=== PATIENT | male | born 1970 | race Caucasian/White ===

== ENCOUNTER 2016-10-06 12:17 | Emergency (ER) | payer OTHER ==
[2016-10-06 12:17] VITALS: BMI 37.3
[2016-10-06 12:50] VITALS: BP 117/75; PULSE 67; RESP 18; TEMP 98.5; O2SAT 99
--- NOTE | 2016-10-06 13:17 | C.PDOC ---
History Of Present Illness <Lula Vega - Last Filed: 10/06/16 13:14> <Ruddy Chaudhry DO - Last Filed: 10/06/16 14:43> 46 year old male patient presents to the ED c/o right shoulder and right elbow pain increased for the past 2 days. Patient notes that the pain is intermittent and he had the same shoulder pain for the last 2 years. Patient denies new trauma, change in pain, or injury to site. Patient denies fever, chills, chest pain, neck pain, headache, nausea, vomiting, or any other complaints. (Ruddy Chaudhry DO) <Lula Vega - Last Filed: 10/06/16 13:14> History Per: Patient History/Exam Limitations: no limitations Onset/Duration Of Symptoms: Days Current Symptoms Are (Timing): Still Present Quality: Other (Intermittent ) Severity: Mild <Ruddy Chaudhry DO - Last Filed: 10/06/16 14:43> Time Seen by Provider: 10/06/16 12:30 Chief Complaint (Nursing): Upper Extremity Problem/Injury Past Medical History - Medical History PMH: Arthritis, Fibromyalgia, HTN, Osteoporosis, Rheumatoid Arthritis Denies: Diabetes (pt is unsure but believes to be borderline diabetic) Family History: States: Unknown Family Hx - Social History Hx Tobacco Use: No Hx Alcohol Use: No Hx Substance Use: No - Immunization History Hx Tetanus Toxoid Vaccination: Yes Hx Influenza Vaccination: Yes Hx Pneumococcal Vaccination: Yes <Lula Vega - Last Filed: 10/06/16 13:14> Reviewed: Historical Data, Nursing Documentation, Vital Signs Family History: States: Unknown Family Hx <Ruddy Chaudhry DO - Last Filed: 10/06/16 14:43> Vital Signs: Last Vital Signs Temp 98.5 F 10/06/16 12:22 Pulse 67 10/06/16 12:22 Resp 18 10/06/16 12:22 BP 117/75 10/06/16 12:22 Pulse Ox 99 10/06/16 13:17 Review Of Systems Except As Marked, All Systems Reviewed And Found Negative. Constitutional: Negative for: Fever, Chills, Other (Trauma) Cardiovascular: Negative for: Chest Pain Gastrointestinal: Negative for: Nausea, Vomiting Musculoskeletal: Positive for: Shoulder Pain (Right). Negative for: Neck Pain Neurological: Negative for: Headache <Ruddy Chaudhry DO Last Filed: 10/06/16 14:43> Physical Exam - Physical Exam Appears: Non-toxic, No Acute Distress Skin: Warm, Dry Head: Atraumatic, Normacephalic Eye(s): bilateral: Normal Inspection Cardiovascular: Rhythm Regular, No Murmur Respiratory: Normal Breath Sounds, No Rales, No Rhonchi, No Wheezing Gastrointestinal/Abdominal: Soft, No Tenderness Extremity: Tenderness (Diffuse right shoulder tenderness) Neurological/Psych: Oriented x3, Normal Speech, Normal Cognition <Ruddy Chaudhry DO Last Filed: 10/06/16 14:43> ED Course And Treatment O2 Sat by Pulse Oximetry: 99 <YessytresadiamondLula - Last Filed: 10/06/16 13:14> O2 Sat by Pulse Oximetry: 99 (Room air) Pulse Ox Interpretation: Normal Progress Note: Plans: Toradol, X-Ray of right shoulder <Ruddy Chaudhry DO Last Filed: 10/06/16 14:43> Disposition - Disposition Disposition Time: 13:15 <YessytresadiamondLula - Last Filed: 10/06/16 13:14> <Ruddy Chaudhry DO Last Filed: 10/06/16 14:43> - Disposition Disposition: HOME/ ROUTINE Condition: STABLE Additional Instructions: Follow up with primary medical doctor in 1-3 days without fail for further evaluation. Take medications as prescribed. Return to the emergency department at any time if symptoms persist or worsen. Prescriptions: Ketorolac Tromethamine [Toradol] 10 mg PO Q6 PRN #20 tab PRN Reason: Pain, Moderate (4-7) Instructions: Rheumatoid Arthritis (ED) - Clinical Impression Clinical Impression: Rheumatoid arthritis
--- NOTE | 2016-10-06 13:32 | RAD ---
PROCEDURE: Radiographs of the Right Shoulder HISTORY: pain COMPARISON: No prior. FINDINGS: BONES: No fracture or dislocation. JOINTS: Mild degenerative changes. SOFT TISSUES: Normal. OTHER FINDINGS: None. IMPRESSION: No fracture or dislocation. Mild degenerative changes.
--- NOTE | 2016-10-06 14:47 | C.PDOC ---
History Of Present Illness 46 year old male patient presents to the ED c/o right shoulder and right elbow pain increased for the past 2 days. Patient notes that the pain is intermittent and he had the same shoulder pain for the last 2 years. Patient denies new trauma, change in pain, or injury to site. Patient denies fever, chills, chest pain, neck pain, headache, nausea, vomiting, or any other complaints. Time Seen by Provider: 10/06/16 12:30 Chief Complaint (Nursing): Upper Extremity Problem/Injury History Per: Patient History/Exam Limitations: no limitations Onset/Duration Of Symptoms: Days Current Symptoms Are (Timing): Still Present Quality: Other (Intermittent) Severity: Mild Past Medical History Reviewed: Historical Data, Nursing Documentation, Vital Signs Vital Signs: Last Vital Signs Temp 98.5 F 10/06/16 12:22 Pulse 67 10/06/16 12:22 Resp 18 10/06/16 12:22 BP 117/75 10/06/16 12:22 Pulse Ox 99 10/06/16 15:53 - Medical History PMH: Arthritis, Fibromyalgia, HTN, Osteoporosis, Rheumatoid Arthritis Denies: Diabetes (pt is unsure but believes to be borderline diabetic) Family History: States: Unknown Family Hx - Social History Hx Tobacco Use: No Hx Alcohol Use: No Hx Substance Use: No - Immunization History Hx Tetanus Toxoid Vaccination: Yes Hx Influenza Vaccination: Yes Hx Pneumococcal Vaccination: Yes Review Of Systems Except As Marked, All Systems Reviewed And Found Negative. Constitutional: Negative for: Fever, Chills, Other (Trauma) Cardiovascular: Negative for: Chest Pain Gastrointestinal: Negative for: Nausea, Vomiting Musculoskeletal: Positive for: Shoulder Pain (Right). Negative for: Neck Pain Neurological: Negative for: Headache Physical Exam - Physical Exam Appears: Non-toxic, No Acute Distress Skin: Warm, Dry Head: Atraumatic, Normacephalic Eye(s): bilateral: Normal Inspection, EOMI Nose: Normal Oral Mucosa: Moist Neck: Normal, Normal ROM, No Midline Cervical Tenderness, No Paracervical Tenderness, No Step Off Deformity, Supple Chest: Symmetrical, No Tenderness Cardiovascular: Rhythm Regular, No Murmur Respiratory: Normal Breath Sounds, No Rales, No Rhonchi, No Wheezing Gastrointestinal/Abdominal: Soft, No Tenderness Extremity: Normal ROM, Tenderness (Diffuse right shoulder tenderness) Pulses: Left Radial: Normal, Right Radial: Normal Neurological/Psych: Oriented x3, Normal Speech, Normal Cognition, Normal Motor ( 5/5 strength against resistance), Normal Sensation ED Course And Treatment O2 Sat by Pulse Oximetry: 99 (Room air) Pulse Ox Interpretation: Normal - Other Rad X-Ray right shoulder X-Ray: Viewed By Me, Read By Radiologist Interpretation: PROCEDURE: Radiographs of the Right Shoulder. HISTORY: pain. COMPARISON: No prior. FINDINGS: BONES: No fracture or dislocation. JOINTS : Mild degenerative changes. SOFT TISSUES: Normal. OTHER FINDINGS: None. IMPRESSION: No fracture or dislocation. Mild degenerative changes. Progress Note: Plans: Toradol, X-Ray of right shoulder. On ree-valuation, pain improved. No change in sensation. Instructed to follow upwith PMD in 1-2 days. Disposition - Disposition Disposition: HOME/ ROUTINE Disposition Time: 15:00 Condition: STABLE Additional Instructions: Follow up with primary medical doctor in 1-3 days without fail for further evaluation. Take medications as prescribed. Return to the emergency department at any time if symptoms persist or worsen. Prescriptions: Ketorolac Tromethamine [Toradol] 10 mg PO Q6 PRN #20 tab PRN Reason: Pain, Moderate (4-7) Instructions: Rheumatoid Arthritis (ED) - Clinical Impression Clinical Impression: Rheumatoid arthritis - Scribe Statement The provider has reviewed the documentation as recorded by the Scribherson webber All medical record entries made by the Scribe were at my direction and personally dictated by me. I have reviewed the chart and agree that the record accurately reflects my personal performance of the history, physical exam, medical decision making, and the department course for this patient. I have also personally directed, reviewed, and agree with the discharge instructions and disposition.
== END 2016-10-06 13:35 | disposition home or self-care (01) ==
LOC: C.ER 12:17
DX: M06.9 Rheumatoid arthritis, unspecified (principal); M81.0 Age-related osteoporosis without current pathological fracture; I10 Essential (primary) hypertension; M79.7 Fibromyalgia
CPT/HCPCS: 73030; 96372; 99284; J1885